=== PATIENT | female | born 2000 | race Caucasian/White ===

== ENCOUNTER 2022-06-14 11:00 | Outpatient (CLI) | payer OTHER | END 2022-06-14 11:15 | disposition home or self-care (01) | LOC: LAB.N 11:00 | PROVIDERS: ATTEND Nurse Practitioner | DX: Z53.9 Procedure and treatment not carried out, unspecified reason (principal) | CPT/HCPCS: 36415; 80053; 84443; 85025 ==

== ENCOUNTER 2022-08-14 09:27 | Outpatient (CLI) | payer BC ==
[2022-08-14 19:03] LABS: BASOPHILS % (AUTO) 0.9 %; EOSINOPHILS % (AUTO) 0.6 %; HCT - HEMATOCRIT 41.6 % (37.0-47.0); HGB - HEMOGLOBIN 13.5 g/dL (12.0-16.0); LYMPHOCYTES # (AUTO) 1.2 10^3/uL (1.5-3.5); LYMPHOCYTES % (AUTO) 34.5 %; MEAN CORPUSCULAR HEMOGLOBIN 31.8 pg (27.0-31.0); MEAN CORPUSCULAR HGB CONC 32.5 g/dL (32.0-36.0); MEAN CORPUSCULAR VOLUME 98.1 fL (81.0-99.0); MEAN PLATELET VOLUME 11.6 fL (7.9-10.8); MONOCYTES # (AUTO) 0.3 10^3/uL (0.0-1.0); MONOCYTES % (AUTO) 9.6 %; NEUTROPHILS # (AUTO) 1.8 10^3/uL (1.5-6.6); NEUTROPHILS % (AUTO) 54.4 %; PLT - PLATELET COUNT 153 10^3/uL (130-450); RED BLOOD COUNT 4.24 10^6/uL (4.20-5.40); RED CELL DISTRIBUTION WIDTH 13.2 % (12.0-15.0); WHITE BLOOD COUNT 3.3 x10^3/uL (4.8-10.8)
[2022-08-14 19:58] LABS: % IRON SATURATION 21 % (20-50); ALBUMIN 4.6 g/dL (3.2-5.5); ALBUMIN/GLOBULIN RATIO 1.9 (1.0-2.2); ALKALINE PHOSPHATASE 44 IU/L (42-121); ALT ALANINE AMINOTRANSFERASE 30 IU/L (10-60); AST ASPARTATE AMINOTRANSFERASE 24 IU/L (10-42); BILIRUBIN,TOTAL 0.9 mg/dL (0.2-1.0); BUN - BLOOD UREA NITROGEN 19 mg/dL (6-20); CALCIUM 9.3 mg/dL (8.5-10.3); CARBON DIOXIDE - CO2 29 mmol/L (21-32); CHLORIDE 106 mmol/L (101-111); CHOL/HDL RATIO 3.7 (<4.4); CHOLESTEROL 220 mg/dL; CREATININE 0.7 mg/dL (0.4-1.0); GFR - MDRD 106 (>89); GLUCOSE 88 mg/dL (70-100); HDL CHOLESTEROL 59 mg/dL; IRON 64 ug/dL (28-170); LDL CHOLESTEROL,CALCULATED 152 mg/dL; LDL/HDL RATIO 2.6 (<4.4); POTASSIUM 4.8 mmol/L (3.5-5.0); SODIUM 139 mmol/L (135-145); TOTAL IRON BINDING CAPACITY 298 ug/dL (250-450); TRANSFERRIN 213 mg/dL (192-382); TRIGLYCERIDES 47 mg/dL; VLDL CHOLESTEROL 9 mg/dL
[2022-08-14 20:01] LABS: THYROID STIMULATING HORMONE 0.94 uIU/mL (0.34-5.60)
[2022-08-14 20:07] LABS: FERRITIN 51.2 ng/mL (11.0-306.8)
[2022-08-14 20:08] LABS: PROLACTIN 2.48 ng/mL
[2022-08-14 20:29] LABS: FOLLICLE STIMULATING HORMONE 5.94 mIU/mL
[2022-08-14 21:37] LABS: ESTIMATED AVERAGE GLUCOSE 74 mg/dL (70-100); HEMOGLOBIN A1c% 4.2 % (4.27-6.07)
== END 2022-08-14 09:28 | disposition home or self-care (01) ==
LOC: LAB.N 09:27
PROVIDERS: ATTEND Nurse Practitioner Family
DX: N91.2 Amenorrhea, unspecified (principal); R63.4 Abnormal weight loss
CPT/HCPCS: 36415; 80053; 80061; 82607; 82670; 82728; 83001; 83036; 83540; 83721; 84146; 84443; 84466; 85025

== ENCOUNTER 2022-09-16 08:00 | Outpatient (CLI) | payer OTHER ==
[2022-09-17 21:18] LABS: FECAL OCCULT BLOOD (FIT) NEGATIVE (NEGATIVE)
== END 2022-09-16 23:59 | disposition home or self-care (01) ==
LOC: LAB.N 08:00
PROVIDERS: ATTEND Nurse Practitioner Family
DX: R63.4 Abnormal weight loss (principal)
CPT/HCPCS: 82274

== ENCOUNTER 2022-09-20 13:48 | Outpatient (CLI) | payer OTHER | END 2022-09-20 13:49 | disposition home or self-care (01) | LOC: NS 13:48 | PROVIDERS: ATTEND Nurse Practitioner Family | DX: R63.4 Abnormal weight loss (principal); N91.2 Amenorrhea, unspecified; Z68.1 Body mass index [BMI] 19.9 or less, adult; Z71.3 Dietary counseling and surveillance; Z71.89 Other specified counseling | CPT/HCPCS: 97802 ==